=== PATIENT | female | born 1940 | race Two or more races ===

== ENCOUNTER 2024-12-22 03:38 | Inpatient (IN) | payer MEDICARE, OTHER ==
[~2024-12-22] VITALS: Ht 165.1 cm; Wt 69.9 kg
[2024-12-22] MEDS ORDERED: ALLO100T PO (04:05)
[2024-12-22] MEDS ORDERED: BUPR75TA21 PO (04:05)
[2024-12-22] MEDS ORDERED: ATOR80TA PO (04:05)
[2024-12-22] MEDS ORDERED: BUSP10TA3 PO (04:05)
[2024-12-22] MEDS ORDERED: AMIO100T4 PO (04:05)
[2024-12-22] MEDS ORDERED: HYDR-4076 PO (04:11)
[2024-12-22] MEDS ORDERED: SUCR1TAB31 PO (04:11)
[2024-12-22] MEDS ORDERED: METO25TA4 PO (04:11)
[2024-12-22] MEDS ORDERED: FURO20TA4 PO (04:11)
[2024-12-22] MEDS ORDERED: GABA-536 PO (04:11)
[2024-12-22] MEDS ORDERED: SACU1TAB PO (04:11)
[2024-12-22] MEDS ORDERED: APIX5TAB PO (04:11)
[2024-12-22] MEDS ORDERED: MELA1TAB47 PO (04:13)
[2024-12-22] MEDS ORDERED: SPIR25TA6 PO (04:13)
[2024-12-22] MEDS: IV NS 0.9% 1,000 ML BAG IV ONE (04:35)
[2024-12-22] MEDS ORDERED: METOPROLOL TARTRATE INJ 5 MG/5 ML AMPUL ONE (04:48)
[2024-12-22] MEDS: METOPROLOL TARTRATE INJ 5 MG/5 ML AMPUL IV ONE (04:54)
[2024-12-22 05:05] LABS: PLATELET COUNT (AUTO) 207 K/uL (150-450); RED BLOOD CELL COUNT(AUTO) 5.25 MIL/uL (4.0-5.2); RED CELL DISTRIBUTION WIDTH 17.4 % (11.5-15.0); WHITE BLOOD COUNT (AUTO) 5.8 K/uL (4.3-11.0)
[2024-12-22 05:13] LABS: CALCIUM, SERUM 9.8 mg/dL (8.5-10.1); CREATININE 0.7 mg/dL (0.6-1.3); SODIUM SERUM 138 mmol/L (136-145); UREA NITROGEN, BLOOD 19 mg/dL (7-18)
[2024-12-22 05:19] LABS: ASPARTATE AMINOTRANSFERASE 40 U/L (15-37); TOTAL PROTEIN, SERUM 6.7 g/dL (6.4-8.2)
[2024-12-22 05:21] LABS: APPEARANCE,URINE CLEAR (CLEAR); BLOOD, URINE NEGATIVE Ery/uL (NEGATIVE); LEUKOCYTE ESTERASE ,URINE NEGATIVE (NEGATIVE); NITRITE, URINE NEGATIVE (NEGATIVE); UGLUCOSE NEGATIVE (NEGATIVE)
[2024-12-22] MEDS ORDERED: AMIODARONE 150 MG/3 ML VIAL IV ONE (05:22)
[2024-12-22 05:23] LABS: LACTIC ACID 2.1 mmol/L (0.4-2.0)
[2024-12-22] MEDS: AMIODARONE 150 MG/3 ML VIAL IV ONE (05:30)
[2024-12-22] MEDS ORDERED: PIPERACI/TAZO 3.375GM/D5W 50ML PB IV ONE (05:45)
[2024-12-22 05:49] LABS: INR 1.15 (0.91-1.10)
[2024-12-22] MEDS: PIPERACILLIN /TAZOBACTAM 3.375 G in IV D5W 50 ML IV ONE (05:52)
[2024-12-22] MEDS ORDERED: MAGNESIUM HYDROXIDE 30 ML UDC PO PRN (06:30)
[2024-12-22] MEDS ORDERED: Z GUARD REMEDY 4 OZ OINT TP PRN (06:30)
[2024-12-22] MEDS ORDERED: ONDANSETRON HCL/PF 4 MG/2 ML VIAL IVP PRN (06:30)
[2024-12-22] MEDS ORDERED: ENOXAPARIN SODIUM 40 MG/0.4 ML DISP.SYRIN SQ SCH (06:30)
[2024-12-22] MEDS ORDERED: MAG HYDROX/AL HYDROX/SIMETH 30 ML UDC PO PRN (06:30)
[2024-12-22 07:35] LABS: PHOSPHORUS 3.4 mg/dL (2.5-4.9)
[2024-12-22] MEDS ORDERED: SENN-261 PO (07:37)
[2024-12-22] MEDS ORDERED: ZINC56.713 TP (07:37)
[2024-12-22] MEDS ORDERED: ACET325T53 PO (07:37)
[2024-12-22] MEDS ORDERED: BREO ELLIPTA IH (07:37)
[2024-12-22] MEDS ORDERED: MULT-213 PO (07:37)
[2024-12-22] MEDS ORDERED: POLY17PO4 PO (07:37)
[2024-12-22] MEDS ORDERED: AMIN30LI66 PO (07:37)
[2024-12-22] MEDS ORDERED: ASCO500T10 PO (07:37)
[2024-12-22] MEDS ORDERED: PANT40TA2 PO (07:37)
[2024-12-22 09:00] VITALS: BP 104/84; TEMP 97.9; O2SAT 98
[2024-12-22] MEDS ORDERED: AMIODARONE HCL 200 MG TABLET PO SCH ×2 (09:00→10:32)
[2024-12-22] MEDS: GABAPENTIN 400 MG CAPSULE PO SCH (10:44)
[2024-12-22] MEDS: PANTOPRAZOLE 40 MG TABLET.DR PO SCH (10:44)
[2024-12-22] MEDS: SUCRALFATE 1 G TABLET PO SCH (10:44)
[2024-12-22] MEDS: SPIRONOLACTONE 25 MG TABLET PO SCH (10:51)
[2024-12-22] MEDS: FUROSEMIDE 20 MG TABLET PO SCH (10:51)
[2024-12-22] MEDS: METOPROLOL SUCCINATE 25 MG TAB.SR.24H PO SCH (10:52)
[2024-12-22] MEDS: APIXABAN 5 MG TABLET PO SCH (10:59)
[2024-12-22 12:00] VITALS: BP 103/62; TEMP 97.9; O2SAT 99
[2024-12-22] MEDS ORDERED: AMIODARONE 450 MG in IV D5W 250 ML IV PRN (12:30)
[2024-12-22] MEDS ORDERED: PIPERACILLIN /TAZOBACTAM 3.375 G in IV D5W 50 ML IV SCH (13:00)
[2024-12-22] MEDS ORDERED: AMIODARONE 150 MG in IV D5W 100 ML IV ONE (13:00)
[2024-12-22] MEDS: PIPERACILLIN /TAZOBACTAM 3.375 G in IV D5W 100 ML IV SCH (14:13)
[2024-12-22] MEDS: AMIODARONE HCL 200 MG TABLET PO SCH (14:13)
[2024-12-22 16:00] VITALS: BP 97/61; TEMP 97.3; O2SAT 99
[2024-12-22 20:00] VITALS: BP 98/82; TEMP 97.2; O2SAT 96
[2024-12-22] MEDS: ACETAMINOPHEN 325 MG TABLET PO PRN (20:35)
[2024-12-22] MEDS: ATORVASTATIN 40 MG TABLET PO SCH (22:02)
[2024-12-23] VITALS (7 sets, daily range): BP systolic 93–169; BP diastolic 63–92; TEMP 97.2–98.1; O2SAT 95–98
[2024-12-23 06:42] LABS: CALCIUM, SERUM 9.6 mg/dL (8.5-10.1); CREATININE 0.9 mg/dL (0.6-1.3); SODIUM SERUM 137.0 mmol/L (136-145); UREA NITROGEN, BLOOD 20.0 mg/dL (7-18)
[2024-12-23 06:58] LABS: PLATELET COUNT (AUTO) 221 K/uL (150-450); RED BLOOD CELL COUNT(AUTO) 5.47 MIL/uL (4.0-5.2); RED CELL DISTRIBUTION WIDTH 18.2 % (11.5-15.0); WHITE BLOOD COUNT (AUTO) 6.8 K/uL (4.3-11.0)
[2024-12-23] MEDS: FLUTICASONE/VILANTEROL 1 EACH BLST.W.DEV IH SCH (09:00)
[2024-12-23] MEDS: ALLOPURINOL 100 MG TABLET PO SCH (10:34)
[2024-12-23] MEDS: ASCORBIC ACID 500 MG TABLET PO SCH (10:36)
[2024-12-23] MEDS: IV NS 0.9% 500 ML IV ONE (10:58)
[2024-12-24] VITALS: BP 118/96; TEMP 97.5; O2SAT 98
[2024-12-24 04:00] VITALS: BP 120/83; TEMP 97.5; O2SAT 96
[2024-12-24 08:00] VITALS: BP 118/83; TEMP 98.1; O2SAT 100
[2024-12-24] MEDS: PANTOPRAZOLE 40 MG TABLET.DR PO SCH (08:58)
[2024-12-24 12:00] VITALS: BP 91/76; TEMP 98; O2SAT 100
[2024-12-24 16:00] VITALS: BP 111/87; TEMP 97.7; O2SAT 97
[2024-12-24] MEDS: AMIODARONE HCL 200 MG TABLET PO ONE (19:14)
[2024-12-24 20:00] VITALS: BP 100/78; TEMP 97.7; O2SAT 95
[2024-12-25] VITALS: BP 102/76; TEMP 97; O2SAT 97
[2024-12-25 04:00] VITALS: BP 102/58; TEMP 97; O2SAT 98
[2024-12-25 07:43] LABS: PLATELET COUNT (AUTO) 213 K/uL (150-450); RED BLOOD CELL COUNT(AUTO) 5.25 MIL/uL (4.0-5.2); RED CELL DISTRIBUTION WIDTH 18.0 % (11.5-15.0); WHITE BLOOD COUNT (AUTO) 6.3 K/uL (4.3-11.0)
[2024-12-25 08:00] VITALS: BP 111/83; TEMP 97.7; O2SAT 97; O2SAT 98
[2024-12-25 08:05] LABS: CALCIUM, SERUM 9.0 mg/dL (8.5-10.1); CREATININE 0.9 mg/dL (0.6-1.3); PHOSPHORUS 2.8 mg/dL (2.5-4.9); SODIUM SERUM 142.0 mmol/L (136-145); UREA NITROGEN, BLOOD 17.0 mg/dL (7-18)
[2024-12-25] MEDS ORDERED: AMIO200T7 PO (08:27)
[2024-12-25 12:00] VITALS: BP_SYST 105; BP_DIAS 61; BP_DIAS 83; TEMP 97.7; TEMP 98.4; O2SAT 97; O2SAT 98
[2024-12-25] MEDS: SORBITOL SOLUTION 70% 30 ML SOLUTION PO ONE (13:07)
[2024-12-25] MEDS: BISACODYL SUPP (10 MG) 10 MG/SUPP.RECT SUPP.RECT RC ONE (13:07)
[2024-12-25] MEDS: LACTULOSE 10 G/15 ML UDC (PYXIS) PR ONE (13:24)
[2024-12-25 16:00] VITALS: BP 99/76; TEMP 98.8; O2SAT 100
[2024-12-25 20:00] VITALS: BP 111/73; TEMP 98.6; O2SAT 97
[2024-12-26] VITALS: BP 115/76; TEMP 98.1; O2SAT 98
[2024-12-26 04:00] VITALS: BP 107/78; TEMP 98.1; O2SAT 98
[2024-12-26 08:00] VITALS: BP 109/77; TEMP 98.4; O2SAT 97
[2024-12-26 12:00] VITALS: BP 112/81; TEMP 98.1; O2SAT 100
[2024-12-26] MEDS: METOPROLOL TARTRATE 50 MG TABLET PO SCH (12:45)
[2024-12-26 16:00] VITALS: BP 98/70; TEMP 97.9; O2SAT 95
[2024-12-26 20:00] VITALS: BP 114/68; TEMP 97.7; O2SAT 98
== END 2024-12-26 21:35 | DRG 280 ==
LOC: ER 03:39 → TELE-TD 07:44 → TELE1 07:58
PROVIDERS: ADMIT Nurse Practitioner Acute Care; ATTEND Nurse Practitioner Acute Care
DX: I48.20 Chronic atrial fibrillation, unspecified (principal); I50.23 Acute on chronic systolic (congestive) heart failure; I21.A1 Myocardial infarction type 2; L89.313 Pressure ulcer of right buttock, stage 3; E44.0 Moderate protein-calorie malnutrition; E87.20 Acidosis, unspecified; I25.10 Atherosclerotic heart disease of native coronary artery without angina pectoris; E78.5 Hyperlipidemia, unspecified; I11.0 Hypertensive heart disease with heart failure; Z86.73 Personal history of transient ischemic attack (TIA), and cerebral infarction without residual deficits; Z79.01 Long term (current) use of anticoagulants; Z66 Do not resuscitate; Z95.0 Presence of cardiac pacemaker; E88.09 Other disorders of plasma-protein metabolism, not elsewhere classified; Z68.25 Body mass index [BMI] 25.0-25.9, adult; I42.9 Cardiomyopathy, unspecified; L89.152 Pressure ulcer of sacral region, stage 2; L89.326 Pressure-induced deep tissue damage of left buttock; L98.8 Other specified disorders of the skin and subcutaneous tissue; I48.92 Unspecified atrial flutter
CPT/HCPCS: 36415; 71045-TC; 80048-TC; 80076-TC; 83605-TC; 83735-TC; 84100-TC; 84443-TC; 84484-TC; 85025-TC; 85730-TC; 87040-TC; 87081-TC; 87086-TC; 93307-TC; 97110-TC; 97112-TC; 97530-TC; A4223; G0378; J0282; J2543; J3490; J7030; J7040; J7050; J7060

== ENCOUNTER 2025-01-23 22:25 | Inpatient (IN) | payer MEDICARE, OTHER ==
[~2025-01-23] VITALS: Ht 162.6 cm; Wt 71.7 kg
[~2025-01-23 22:25] MED LIST: ACET325T53 PO; ALLO100T PO; AMIN30LI66 PO; AMIO100T4 PO; AMIO200T7 PO; APIX5TAB PO; ASCO500T10 PO; ATOR80TA PO; BREO ELLIPTA IH; BUPR75TA21 PO; BUSP10TA3 PO; FURO20TA4 PO; GABA-536 PO; HYDR-4076 PO; MELA1TAB47 PO; METO25TA4 PO; MULT-213 PO; PANT40TA2 PO; POLY17PO4 PO; SACU1TAB PO; SENN-261 PO; SPIR25TA6 PO; SUCR1TAB31 PO; ZINC56.713 TP
[2025-01-23 23:23] LABS: PLATELET COUNT (AUTO) 210 K/uL (150-450); RED BLOOD CELL COUNT(AUTO) 5.07 MIL/uL (4.0-5.2); RED CELL DISTRIBUTION WIDTH 16.2 % (11.5-15.0); WHITE BLOOD COUNT (AUTO) 7.7 K/uL (4.3-11.0)
[2025-01-23 23:36] LABS: CALCIUM, SERUM 9.1 mg/dL (8.5-10.1); CREATININE 0.6 mg/dL (0.6-1.3); SODIUM SERUM 140.0 mmol/L (136-145); UREA NITROGEN, BLOOD 8.0 mg/dL (7-18)
[2025-01-23 23:45] LABS: ASPARTATE AMINOTRANSFERASE 104.0 U/L (15-37); TOTAL PROTEIN, SERUM 6.1 g/dL (6.4-8.2)
[2025-01-23] MEDS ORDERED: POTASSIUM CL. PREMIX PERIPHER. 300 ML ONE (23:48)
[2025-01-23 23:50] VITALS: O2SAT 98
[2025-01-23] MEDS: ALBUTEROL FS 2.5 MG/3 ML VIAL.NEB NEB ONE (23:50)
[2025-01-23] MEDS: IPRATROPIUM NEB FS 0.5 MG/2.5 ML AMPUL.NEB NEB ONE (23:50)
[2025-01-23] MEDS: POTASSIUM CL. PREMIX PERIPHER. 50 ML IV SCH (23:59)
[2025-01-24] VITALS (11 sets, daily range): BP systolic 112–130; BP diastolic 70–96; TEMP 97.3–97.9; O2SAT 94–100
[2025-01-24 00:02] LABS: APPEARANCE,URINE SLIGHTLY CLOUDY (CLEAR); BLOOD, URINE 2+ Ery/uL (NEGATIVE); LEUKOCYTE ESTERASE ,URINE 3+ (NEGATIVE); NITRITE, URINE POSITIVE (NEGATIVE); UGLUCOSE NEGATIVE (NEGATIVE)
[2025-01-24 00:09] LABS: ADD URINE CULTURE YES; SQUAMOUS EPITHELIAL CELL,UR Rare /HPF (None Seen)
[2025-01-24] MEDS ORDERED: ONDANSETRON HCL/PF 4 MG/2 ML VIAL IVP PRN (01:30)
[2025-01-24] MEDS ORDERED: MAGNESIUM HYDROXIDE 30 ML UDC PO PRN (01:30)
[2025-01-24] MEDS ORDERED: MAG HYDROX/AL HYDROX/SIMETH 30 ML UDC PO PRN (01:30)
[2025-01-24] MEDS ORDERED: Z GUARD REMEDY 4 OZ OINT TP PRN (01:30)
[2025-01-24] MEDS: CEFTRIAXONE 1 G in IV D5W 50 ML IV ONE ×2 (02:30→05:04)
[2025-01-24] MEDS: CEFTRIAXONE 1GM BAG (ER ONLY) 50 ML IV ONE (04:35)
[2025-01-24] MEDS: LEVALBUTEROL HCL NEB 1.25 MG/0.5 ML VIAL.NEB NEB SCH (07:13)
[2025-01-24] MEDS: IPRATROPIUM NEB FS 0.5 MG/2.5 ML AMPUL.NEB NEB SCH (07:13)
[2025-01-24] MEDS ORDERED: BUSP5TAB3 PO ×2 (08:16)
[2025-01-24] MEDS ORDERED: CLOT15CR5 TP (08:16)
[2025-01-24] MEDS ORDERED: ONDA4TAB5 PO (08:16)
[2025-01-24] MEDS ORDERED: ZINC220C6 PO (08:16)
[2025-01-24] MEDS ORDERED: COLL30OI TP (08:16)
[2025-01-24] MEDS ORDERED: AMIO400T5 PO (08:16)
[2025-01-24] MEDS ORDERED: ALPR0.255 PO (08:16)
[2025-01-24] MEDS: PANTOPRAZOLE 40 MG VIAL IV SCH (09:02)
[2025-01-24] MEDS: SUCRALFATE 1 G TABLET PO SCH (12:31)
[2025-01-24] MEDS: ZINC SULFATE 220 MG CAPSULE PO SCH (12:31)
[2025-01-24] MEDS: MULTIVIT W/MINERALS 1 TAB TABLET PO SCH (12:32)
[2025-01-24] MEDS: AMIODARONE HCL 200 MG TABLET PO SCH (12:32)
[2025-01-24] MEDS: PANTOPRAZOLE 40 MG TABLET.DR PO SCH (12:32)
[2025-01-24] MEDS: GABAPENTIN 400 MG CAPSULE PO SCH (12:32)
[2025-01-24] MEDS: METOPROLOL SUCCINATE 25 MG TAB.SR.24H PO SCH (12:33)
[2025-01-24] MEDS: ASCORBIC ACID 500 MG TABLET PO SCH (12:33)
[2025-01-24] MEDS: SENNOSIDES 8.6 MG TABLET PO SCH (12:33)
[2025-01-24] MEDS: APIXABAN 5 MG TABLET PO SCH (12:34)
[2025-01-24 12:44] LABS: PLATELET COUNT (AUTO) 241 K/uL (150-450); RED BLOOD CELL COUNT(AUTO) 5.36 MIL/uL (4.0-5.2); RED CELL DISTRIBUTION WIDTH 16.8 % (11.5-15.0); WHITE BLOOD COUNT (AUTO) 6.8 K/uL (4.3-11.0)
[2025-01-24 13:03] LABS: ASPARTATE AMINOTRANSFERASE 105.0 U/L (15-37); CALCIUM, SERUM 9.1 mg/dL (8.5-10.1); CREATININE 0.5 mg/dL (0.6-1.3); PHOSPHORUS 2.5 mg/dL (2.5-4.9); TOTAL PROTEIN, SERUM 6.5 g/dL (6.4-8.2); UREA NITROGEN, BLOOD 11.0 mg/dL (7-18)
[2025-01-24 13:10] LABS: SODIUM SERUM 137.0 mmol/L (136-145)
[2025-01-24] MEDS: CLOTRIMAZOLE/BETAMETASONE DIPROPIONATE 15 GM TUBE TP SCH (13:11)
[2025-01-24] MEDS: FLUTICASONE/VILANTEROL 1 EACH BLST.W.DEV IH SCH (13:12)
[2025-01-24] MEDS: POTASSIUM CHLORIDE 20 MEQ TAB.PRT.SR PO SCH (13:44)
[2025-01-24] MEDS: ALLOPURINOL 100 MG TABLET PO SCH (16:56)
[2025-01-24] MEDS: IV NS 0.9% 1,000 ML IV ONE (16:57)
[2025-01-24] MEDS: CEFTRIAXONE 1 G in IV D5W 50 ML IV SCH (21:00)
[2025-01-24] MEDS: ATORVASTATIN 40 MG TABLET PO SCH (22:04)
[2025-01-25] VITALS (10 sets, daily range): BP systolic 90–151; BP diastolic 55–96; TEMP 97.3–98.8; O2SAT 98–100
[2025-01-25 08:08] LABS: CALCIUM, SERUM 9.4 mg/dL (8.5-10.1); CREATININE 0.7 mg/dL (0.6-1.3); PHOSPHORUS 2.0 mg/dL (2.5-4.9); SODIUM SERUM 137.0 mmol/L (136-145); UREA NITROGEN, BLOOD 14.0 mg/dL (7-18)
[2025-01-25 08:09] LABS: LDL 80 mg/dL (0-99)
[2025-01-25] MEDS: THERAHONEY GEL 1.5 OZ TUBE TP SCH (09:06)
[2025-01-25 09:19] LABS: PLATELET COUNT (AUTO) 237 K/uL (150-450); RED BLOOD CELL COUNT(AUTO) 5.20 MIL/uL (4.0-5.2); RED CELL DISTRIBUTION WIDTH 16.4 % (11.5-15.0); WHITE BLOOD COUNT (AUTO) 12.4 K/uL (4.3-11.0)
[2025-01-25] MEDS ORDERED: DOSING PER PHARMACY-VANCOMYCIN IV XX PRN (13:30)
[2025-01-25] MEDS: VANCOMYCIN 1 GM in IV D5W 250ml IV ONE (15:11)
[2025-01-25] MEDS: K PHOS NEUTRAL 250 MG TABLET PO ONE (16:06)
[2025-01-25] MEDS: VANCOMYCIN 500 MG in IV D5W 100ml IV ONE (16:29)
[2025-01-26] VITALS (14 sets, daily range): BP systolic 90–120; BP diastolic 69–99; TEMP 97.5–98; O2SAT 96–100
[2025-01-26 07:06] LABS: CALCIUM, SERUM 9.2 mg/dL (8.5-10.1); CREATININE 0.6 mg/dL (0.6-1.3); PHOSPHORUS 2.2 mg/dL (2.5-4.9); SODIUM SERUM 139.0 mmol/L (136-145); UREA NITROGEN, BLOOD 16.0 mg/dL (7-18)
[2025-01-26 07:51] LABS: PLATELET COUNT (AUTO) 248 K/uL (150-450); RED BLOOD CELL COUNT(AUTO) 5.39 MIL/uL (4.0-5.2); RED CELL DISTRIBUTION WIDTH 17.4 % (11.5-15.0); WHITE BLOOD COUNT (AUTO) 13.4 K/uL (4.3-11.0)
[2025-01-26] MEDS: ACETAMINOPHEN 325 MG TABLET PO PRN (12:46)
[2025-01-26] MEDS: IV NS 0.9% 500 ML IV ONE (12:47)
[2025-01-26] MEDS: VANCOMYCIN HCL 1.25 GM in IV D5W 250 ML IV SCH (16:15)
[2025-01-26] MEDS: K PHOS NEUTRAL 250 MG TABLET PO ONE (16:15)
[2025-01-27] VITALS (10 sets, daily range): BP systolic 103–113; BP diastolic 64–82; TEMP 97.5–98.6; O2SAT 94–100
[2025-01-27 03:07] LABS: HBSAG SCREEN Negative (Negative); HEPATITIS A AB, IgM Negative (Negative); HEPATITIS B CORE AB, IgM Negative (Negative)
[2025-01-27 03:07] LABS: HBSAG SCREEN Negative (Negative); HEPATITIS A AB, IgM Negative (Negative); HEPATITIS B CORE AB, IgM Negative (Negative)
[2025-01-27] MEDS: VITAMINS A AND D 56.7 GM TUBE TP SCH (09:02)
[2025-01-27 09:55] LABS: PLATELET COUNT (AUTO) 270 K/uL (150-450); RED BLOOD CELL COUNT(AUTO) 5.26 MIL/uL (4.0-5.2); RED CELL DISTRIBUTION WIDTH 16.4 % (11.5-15.0); WHITE BLOOD COUNT (AUTO) 9.8 K/uL (4.3-11.0)
[2025-01-27 10:07] LABS: FOLIC ACID 19.6 ng/mL (>3.0)
[2025-01-27 10:18] LABS: CALCIUM, SERUM 9.5 mg/dL (8.5-10.1); CREATININE 0.7 mg/dL (0.6-1.3); PHOSPHORUS 2.3 mg/dL (2.5-4.9); SODIUM SERUM 140.0 mmol/L (136-145); UREA NITROGEN, BLOOD 17.0 mg/dL (7-18)
[2025-01-27] MEDS ORDERED: VANC1.2526 IV (11:58)
[2025-01-27] MEDS: K PHOS NEUTRAL 250 MG TABLET PO ONE (19:18)
[2025-01-30 03:07] LABS: VITAMIN B1 THIAMINE,WB 124.4 nmol/L (66.5-200.0)
== END 2025-01-27 19:29 | DRG 689 ==
LOC: ER 22:31 → TELE 01-24 01:49
PROVIDERS: ADMIT Nurse Practitioner Acute Care; ATTEND Nurse Practitioner Acute Care
DX: N39.0 Urinary tract infection, site not specified (principal); G93.41 Metabolic encephalopathy; L89.153 Pressure ulcer of sacral region, stage 3; I50.22 Chronic systolic (congestive) heart failure; D68.69 Other thrombophilia; R17 Unspecified jaundice; I48.91 Unspecified atrial fibrillation; E66.9 Obesity, unspecified; E78.5 Hyperlipidemia, unspecified; E86.0 Dehydration; F03.90 Unspecified dementia, unspecified severity, without behavioral disturbance, psychotic disturbance, mood disturbance, and anxiety; E87.6 Hypokalemia; I11.0 Hypertensive heart disease with heart failure; J44.9 Chronic obstructive pulmonary disease, unspecified; Z79.01 Long term (current) use of anticoagulants; Z20.822 Contact with and (suspected) exposure to COVID-19; Z74.09 Other reduced mobility; L98.8 Other specified disorders of the skin and subcutaneous tissue; B95.62 Methicillin resistant Staphylococcus aureus infection as the cause of diseases classified elsewhere; Z66 Do not resuscitate; L85.3 Xerosis cutis; R74.8 Abnormal levels of other serum enzymes
CPT/HCPCS: 36415; 70450-TC; 71045-TC; 76705-TC; 80048-TC; 80053-TC; 80061-TC; 80202-TC; 81001; 82140-TC; 82607-TC; 83605-TC; 83690-TC; 83735-TC; 83921; 84100-TC; 84425; 84443-TC; 85025-TC; 86140-TC; 87040-TC; 87081-TC; 87086-TC; 92526; 92611; 94760-TC; 94761-TC; 94799-TC; A4223; A6223; A6403; G0378; J0696; J2470; J2919; J3373; J3480; J7030; J7040; J7050; J7060

== ENCOUNTER 2025-02-14 18:10 | Inpatient (IN) | payer MEDICARE, OTHER ==
[~2025-02-14] VITALS: Ht 317.5 cm; Wt 75.7 kg
[~2025-02-14 18:10] MED LIST changes: +ALPR0.255 PO; -AMIO100T4 PO; +AMIO400T5 PO; -BUSP10TA3 PO; +BUSP5TAB3 PO; +CLOT15CR5 TP; +COLL30OI TP; +ONDA4TAB5 PO; +VANC1.2526 IV; +ZINC220C6 PO; -ZINC56.713 TP
[2025-02-14] MEDS ORDERED: AMIODARONE 150 MG/3 ML VIAL IV ONE (18:30)
[2025-02-14 18:37] LABS: PLATELET COUNT (AUTO) 199 K/uL (150-450); RED BLOOD CELL COUNT(AUTO) 4.80 MIL/uL (4.0-5.2); RED CELL DISTRIBUTION WIDTH 16.2 % (11.5-15.0); WHITE BLOOD COUNT (AUTO) 5.1 K/uL (4.3-11.0)
[2025-02-14] MEDS: AMIODARONE 150 MG in IV D5W 100 ML IV ONE (18:45)
[2025-02-14 18:57] LABS: CALCIUM, SERUM 8.7 mg/dL (8.5-10.1); CREATININE 0.7 mg/dL (0.6-1.3); SODIUM SERUM 146 mmol/L (136-145); UREA NITROGEN, BLOOD 9 mg/dL (7-18)
[2025-02-14] MEDS ORDERED: OMEP20CA15 PO (18:58)
[2025-02-14] MEDS ORDERED: ACET325T53 PO (18:58)
[2025-02-14] MEDS ORDERED: POTA-10 PO (18:58)
[2025-02-14] MEDS ORDERED: FLUT1DIS IH (18:58)
[2025-02-14] MEDS ORDERED: CRAN425C6 PO (18:58)
[2025-02-14] MEDS ORDERED: POVI1MED TP (18:58)
[2025-02-14 19:03] LABS: INR 1.15 (0.91-1.10)
[2025-02-14] MEDS ORDERED: LABETALOL 20 MG/4 ML VIAL ONE (20:21)
[2025-02-14] MEDS: LABETALOL HCL IV 100MG VIAL IV ONE (20:27)
[2025-02-14] MEDS ORDERED: ONDANSETRON HCL/PF 4 MG/2 ML VIAL IVP PRN (20:30)
[2025-02-14] MEDS ORDERED: Z GUARD REMEDY 4 OZ OINT TP PRN (20:30)
[2025-02-14] MEDS ORDERED: ACETAMINOPHEN 325 MG TABLET PO PRN (20:30)
[2025-02-14] MEDS ORDERED: MAG HYDROX/AL HYDROX/SIMETH 30 ML UDC PO PRN (20:30)
[2025-02-14] MEDS ORDERED: MAGNESIUM HYDROXIDE 30 ML UDC PO PRN (20:30)
[2025-02-14] MEDS: ATORVASTATIN 40 MG TABLET PO SCH (22:45)
[2025-02-14] MEDS: APIXABAN 5 MG TABLET PO SCH (22:45)
[2025-02-14] MEDS: METOPROLOL SUCCINATE 25 MG TAB.SR.24H PO SCH (22:46)
[2025-02-14] MEDS: AMIODARONE HCL 200 MG TABLET PO SCH (22:46)
[2025-02-14 22:50] VITALS: BP 128/96; TEMP 99; O2SAT 99
[2025-02-15] VITALS: BP 111/74; TEMP 99; O2SAT 99
[2025-02-15] MEDS ORDERED: AMIODARONE 150 MG/3 ML VIAL IV ONE (00:47)
[2025-02-15] MEDS: FUROSEMIDE 40 MG/4 ML VIAL IV ONE (01:15)
[2025-02-15] MEDS: POTASSIUM CL. PREMIX PERIPHER. 50 ML IV SCH (01:16)
[2025-02-15 04:00] VITALS: BP 114/64; TEMP 97.5; O2SAT 100
[2025-02-15] MEDS: AMIODARONE 150 MG/3 ML VIAL IV ONE (04:57)
[2025-02-15] MEDS: AMIODARONE 450 MG in IV D5W 241 ML IV PRN (05:58)
[2025-02-15 06:52] LABS: PLATELET COUNT (AUTO) 197 K/uL (150-450); RED BLOOD CELL COUNT(AUTO) 5.09 MIL/uL (4.0-5.2); RED CELL DISTRIBUTION WIDTH 16.5 % (11.5-15.0); WHITE BLOOD COUNT (AUTO) 4.9 K/uL (4.3-11.0)
[2025-02-15 07:10] LABS: CALCIUM, SERUM 9.1 mg/dL (8.5-10.1); CREATININE 0.6 mg/dL (0.6-1.3); PHOSPHORUS 2.8 mg/dL (2.5-4.9); SODIUM SERUM 146.0 mmol/L (136-145); UREA NITROGEN, BLOOD 7.0 mg/dL (7-18)
[2025-02-15 08:00] VITALS: BP 122/82; TEMP 98.2; O2SAT 100
[2025-02-15] MEDS: ZINC SULFATE 220 MG CAPSULE PO SCH (08:24)
[2025-02-15] MEDS: SENNOSIDES 8.6 MG TABLET PO SCH (08:24)
[2025-02-15] MEDS: MULTIVITAMINS,THERAGRAN 1 UDTAB TABLET PO SCH (08:24)
[2025-02-15] MEDS: PANTOPRAZOLE 40 MG TABLET.DR PO SCH (08:24)
[2025-02-15] MEDS: ASCORBIC ACID 500 MG TABLET PO SCH (08:24)
[2025-02-15] MEDS: ALLOPURINOL 100 MG TABLET PO SCH (08:24)
[2025-02-15] MEDS: SPIRONOLACTONE 25 MG TABLET PO SCH (08:24)
[2025-02-15] MEDS: FUROSEMIDE 20 MG TABLET PO SCH (08:24)
[2025-02-15] MEDS: SUCRALFATE 1 G TABLET PO SCH (08:24)
[2025-02-15] MEDS: GABAPENTIN 400 MG CAPSULE PO SCH (08:25)
[2025-02-15] MEDS: POTASSIUM CHLORIDE 10 MEQ TABLET.SA PO SCH (08:28)
[2025-02-15] MEDS: PROSOURCE / PROSTAT (PYXIS) 30 ML UDC PO SCH (08:29)
[2025-02-15] MEDS: FLUTICASONE/SALMETEROL 1 DISK IH SCH (08:29)
[2025-02-15 10:59] LABS: ASPARTATE AMINOTRANSFERASE 42.0 U/L (15-37); TOTAL PROTEIN, SERUM 5.8 g/dL (6.4-8.2)
[2025-02-15 12:00] VITALS: BP 122/82; TEMP 98.2; O2SAT 100
[2025-02-15] MEDS: METOPROLOL TARTRATE 50 MG TABLET PO SCH (12:05)
[2025-02-15 16:00] VITALS: BP 122/86; TEMP 98.4; O2SAT 100
[2025-02-15 20:00] VITALS: BP 121/88; TEMP 98.3; O2SAT 98
[2025-02-16] VITALS: BP 101/75; TEMP 97.5; O2SAT 99
[2025-02-16 04:00] VITALS: BP 124/95; TEMP 97; O2SAT 100
[2025-02-16 07:06] LABS: PLATELET COUNT (AUTO) 204 K/uL (150-450); RED BLOOD CELL COUNT(AUTO) 4.74 MIL/uL (4.0-5.2); RED CELL DISTRIBUTION WIDTH 16.6 % (11.5-15.0); WHITE BLOOD COUNT (AUTO) 5.1 K/uL (4.3-11.0)
[2025-02-16 07:14] LABS: CALCIUM, SERUM 9.3 mg/dL (8.5-10.1); CREATININE 0.7 mg/dL (0.6-1.3); PHOSPHORUS 2.7 mg/dL (2.5-4.9); SODIUM SERUM 147.0 mmol/L (136-145); UREA NITROGEN, BLOOD 11.0 mg/dL (7-18)
[2025-02-16 08:00] VITALS: BP 113/90; TEMP 97.3; O2SAT 100
[2025-02-16] MEDS ORDERED: METO50TA16 PO (09:52)
[2025-02-16] MEDS ORDERED: HYDROCODONE/APAP 5/325MG TABLET PO PRN (10:30)
[2025-02-16] MEDS ORDERED: POTASSIUM CHLORIDE 20 MEQ TAB.PRT.SR PO SCH (10:30)
[2025-02-16] MEDS: MORPHINE SULFATE INJ 2 MG/ML DISP.SYRIN IM ONE (10:35)
[2025-02-16] MEDS: POTASSIUM CHLORIDE 20 MEQ POWDER PACKET PO SCH (10:37)
[2025-02-16 12:00] VITALS: BP 114/78; TEMP 97.3; O2SAT 100
[2025-02-16 12:06] VITALS: BP 114/78
[2025-02-16] MEDS ORDERED: ALBUTEROL FS 2.5 MG/3 ML VIAL.NEB NEB SCH (13:30)
[2025-02-16] MEDS ORDERED: BUDESONIDE RESPULE INH 0.5 MG/2 ML AMPUL.NEB HHN SCH (17:00)
== END 2025-02-16 15:50 | DRG 281 ==
LOC: ER 18:16 → TELE-TD 22:01 → TELE1 02-16 08:29
PROVIDERS: ADMIT Registered Nurse Psychiatric/Mental Health; ATTEND Nurse Practitioner Acute Care
DX: I48.91 Unspecified atrial fibrillation (principal); I50.22 Chronic systolic (congestive) heart failure; I21.A1 Myocardial infarction type 2; J90 Pleural effusion, not elsewhere classified; E87.6 Hypokalemia; I11.0 Hypertensive heart disease with heart failure; E66.9 Obesity, unspecified; E78.5 Hyperlipidemia, unspecified; F32.A Depression, unspecified; I42.9 Cardiomyopathy, unspecified; K21.9 Gastro-esophageal reflux disease without esophagitis; Z79.01 Long term (current) use of anticoagulants; Z95.0 Presence of cardiac pacemaker; R94.5 Abnormal results of liver function studies; I25.10 Atherosclerotic heart disease of native coronary artery without angina pectoris; I73.9 Peripheral vascular disease, unspecified
CPT/HCPCS: 36415; 71045-TC; 80048-TC; 80076-TC; 83735-TC; 84100-TC; 84484-TC; 85025-TC; 85730-TC; 87081-TC; A4223; G0378; J0282; J1938; J3480; J3490; J7040; J7050; J7060; J7120

== ENCOUNTER 2025-03-03 13:04 | Inpatient (IN) | payer MEDICARE, OTHER ==
[~2025-03-03] VITALS: Ht 160 cm; Wt 74.8 kg
[~2025-03-03 13:04] MED LIST changes: -ALPR0.255 PO; -AMIO200T7 PO; -AMIO400T5 PO; -BREO ELLIPTA IH; -BUSP5TAB3 PO; -CLOT15CR5 TP; +CRAN425C6 PO; +FLUT1DIS IH; -HYDR-4076 PO; -METO25TA4 PO; +METO50TA16 PO; +OMEP20CA15 PO; -PANT40TA2 PO; +POTA-10 PO; +POVI1MED TP; -VANC1.2526 IV
[2025-03-03] MEDS ORDERED: MORPHINE SULFATE INJ 4 MG/ML DISP.SYRIN ONE (13:30)
[2025-03-03] MEDS ORDERED: ONDANSETRON HCL/PF 4 MG/2 ML VIAL ONE (13:30)
[2025-03-03 13:43] LABS: PLATELET COUNT (AUTO) 198 K/uL (150-450); RED BLOOD CELL COUNT(AUTO) 5.07 MIL/uL (4.0-5.2); RED CELL DISTRIBUTION WIDTH 16.6 % (11.5-15.0); WHITE BLOOD COUNT (AUTO) 8.4 K/uL (4.3-11.0)
[2025-03-03 13:55] LABS: CALCIUM, SERUM 8.8 mg/dL (8.5-10.1); CREATININE 0.7 mg/dL (0.6-1.3); SODIUM SERUM 135 mmol/L (136-145); UREA NITROGEN, BLOOD 14 mg/dL (7-18)
[2025-03-03 14:01] LABS: ASPARTATE AMINOTRANSFERASE 63 U/L (15-37); TOTAL PROTEIN, SERUM 5.3 g/dL (6.4-8.2)
[2025-03-03 14:09] LABS: LACTIC ACID 2.2 mmol/L (0.4-2.0)
[2025-03-03] MEDS: IV NS 0.9% 500 ML BAG IV ONE (14:10)
[2025-03-03] MEDS: MORPHINE SULFATE INJ 2 MG/ML DISP.SYRIN IV ONE (14:13)
[2025-03-03] MEDS: ONDANSETRON HCL/PF 4 MG/2 ML VIAL IVP ONE (14:13)
[2025-03-03 14:45] LABS: APPEARANCE,URINE CLOUDY (CLEAR); BLOOD, URINE 3+ Ery/uL (NEGATIVE); LEUKOCYTE ESTERASE ,URINE 3+ (NEGATIVE); NITRITE, URINE NEGATIVE (NEGATIVE); UGLUCOSE NEGATIVE (NEGATIVE)
[2025-03-03] MEDS: CEFEPIME 1 GM in IV D5W 50 ML IV ONE (14:50)
[2025-03-03 14:56] LABS: ADD URINE CULTURE YES; SQUAMOUS EPITHELIAL CELL,UR 0-2 /HPF (None Seen)
[2025-03-03] MEDS ORDERED: METOPROLOL SUCCINATE 25 MG TAB.SR.24H ONE (15:22)
[2025-03-03] MEDS ORDERED: METOPROLOL TARTRATE INJ 5 MG/5 ML AMPUL ONE ×2 (15:22→16:16)
[2025-03-03] MEDS: VANCOMYCIN 1 GM in IV D5W 250 ML IV ONE (15:30)
[2025-03-03] MEDS: METOPROLOL TARTRATE INJ 5 MG/5 ML AMPUL IV ONE (15:35)
[2025-03-03] MEDS: METOPROLOL SUCCINATE 50 MG TAB.SR.24H PO STA (15:35)
[2025-03-03] MEDS: METOPROLOL TARTRATE INJ 5 MG/5 ML AMPUL INJ STA (16:20)
[2025-03-03] MEDS: APIXABAN 5 MG TABLET PO SCH (17:00)
[2025-03-03] MEDS: GABAPENTIN 400 MG CAPSULE PO SCH (17:00)
[2025-03-03] MEDS: ALLOPURINOL 100 MG TABLET PO SCH (17:00)
[2025-03-03] MEDS ORDERED: ACETAMINOPHEN 325 MG TABLET PO PRN (17:00)
[2025-03-03] MEDS ORDERED: ONDANSETRON HCL/PF 4 MG/2 ML VIAL IVP PRN (17:00)
[2025-03-03] MEDS ORDERED: MAG HYDROX/AL HYDROX/SIMETH 30 ML UDC PO PRN (17:00)
[2025-03-03] MEDS ORDERED: MAGNESIUM HYDROXIDE 30 ML UDC PO PRN (17:00)
[2025-03-03] MEDS ORDERED: POLYETHYLENE GLYCOL 3350 17 GM POWD.PACK PO PRN (17:30)
[2025-03-03 19:06] VITALS: BP 105/87; TEMP 97.5; O2SAT 98
[2025-03-03 20:00] VITALS: BP 116/79; TEMP 97.7; O2SAT 97
[2025-03-03] MEDS: IV D5 LR 1,000 ML IV PRN (20:02)
[2025-03-03] MEDS: ALBUTEROL FS 2.5 MG/3 ML VIAL.NEB NEB SCH (20:27)
[2025-03-03] MEDS: ZOSYN IVPB 3.375 G in IV D5W 50ml IV SCH (20:28)
[2025-03-03] MEDS: POTASSIUM CL. PREMIX PERIPHER. 50 ML IV SCH (20:31)
[2025-03-03 20:58] VITALS: O2SAT 96
[2025-03-03] MEDS ORDERED: PIPERACILLIN /TAZOBACTAM 3.375 G in IV D5W 50 ML IV SCH (21:00)
[2025-03-03 21:08] VITALS: O2SAT 99
[2025-03-03] MEDS: ATORVASTATIN 40 MG TABLET PO SCH (21:21)
[2025-03-04] VITALS (9 sets, daily range): BP systolic 78–108; BP diastolic 60–90; TEMP 97.3–99; O2SAT 95–99
[2025-03-04] MEDS: IV NS 0.9% 500 ML IV ONE ×2 (02:22)
[2025-03-04] MEDS: BUDESONIDE RESPULE INH 0.5 MG/2 ML AMPUL.NEB NEB SCH (07:05)
[2025-03-04 07:12] LABS: PLATELET COUNT (AUTO) 179 K/uL (150-450); RED BLOOD CELL COUNT(AUTO) 4.86 MIL/uL (4.0-5.2); RED CELL DISTRIBUTION WIDTH 16.1 % (11.5-15.0); WHITE BLOOD COUNT (AUTO) 6.3 K/uL (4.3-11.0)
[2025-03-04] MEDS: SUCRALFATE 1 G TABLET PO SCH (07:30)
[2025-03-04 07:31] LABS: LDL 59.0 mg/dL (0-99)
[2025-03-04 07:33] LABS: CALCIUM, SERUM 8.0 mg/dL (8.5-10.1); CREATININE 0.6 mg/dL (0.6-1.3); PHOSPHORUS 2.9 mg/dL (2.5-4.9); SODIUM SERUM 144.0 mmol/L (136-145); UREA NITROGEN, BLOOD 12.0 mg/dL (7-18)
[2025-03-04 08:49] LABS: ASPARTATE AMINOTRANSFERASE 56.0 U/L (15-37); TOTAL PROTEIN, SERUM 5.1 g/dL (6.4-8.2)
[2025-03-04] MEDS: SENNOSIDES 8.6 MG TABLET PO SCH (09:00)
[2025-03-04] MEDS: SPIRONOLACTONE 25 MG TABLET PO SCH (09:00)
[2025-03-04] MEDS: ZINC SULFATE 220 MG CAPSULE PO SCH (09:00)
[2025-03-04] MEDS: ACETAMINOPHEN 325 MG TABLET PO SCH (09:00)
[2025-03-04] MEDS: MULTIVITAMINS,THERAGRAN 1 UDTAB TABLET PO SCH (09:00)
[2025-03-04] MEDS: ASCORBIC ACID 500 MG TABLET PO SCH (09:00)
[2025-03-04] MEDS: PROSOURCE / PROSTAT (PYXIS) 30 ML UDC PO SCH (09:00)
[2025-03-04] MEDS: SENNOSIDES/DOCUSATE SODIUM 1 TAB TABLET PO SCH (09:00)
[2025-03-04] MEDS: POLYETHYLENE GLYCOL 3350 17 GM POWD.PACK PO SCH (09:00)
[2025-03-04] MEDS: PANTOPRAZOLE 40 MG VIAL IV SCH (09:00)
[2025-03-04] MEDS: POTASSIUM CL. PREMIX PERIPHER. 50 ML IV ONE (09:23)
[2025-03-04] MEDS: THERAHONEY GEL 1.5 OZ TUBE TP SCH ×2 (11:07→11:08)
[2025-03-04] MEDS: ENOXAPARIN SODIUM 40 MG/0.4 ML DISP.SYRIN SQ SCH (11:26)
[2025-03-04] MEDS ORDERED: DIATR MEGLU/DIATRIZOATE SODIUM 120 ML BOTTLE (GASTROGRAPHIN) ONE (14:03)
[2025-03-04] MEDS: NA PHOS,M-B/NA PHOS,DI-BA 1 EA ENEMA RC ONE (16:00)
[2025-03-04] MEDS ORDERED: IOHEXOL-300 100 ML VIAL IV ONE (16:22)
[2025-03-04] MEDS ORDERED: IV NS 0.9% 250 ML IV ONE (16:23)
[2025-03-04] MEDS: MORPHINE SULFATE INJ 2 MG/ML DISP.SYRIN IVP PRN (17:09)
[2025-03-05] VITALS (11 sets, daily range): BP systolic 121–131; BP diastolic 75–97; TEMP 97.3–97.5; O2SAT 92–100
[2025-03-06] VITALS (12 sets, daily range): BP systolic 111–134; BP diastolic 83–105; TEMP 97.3–97.5; O2SAT 94–100
[2025-03-06] MEDS: Z GUARD REMEDY 4 OZ OINT TP PRN (09:32)
[2025-03-06] MEDS: APIXABAN 5 MG TABLET PO SCH (09:54)
[2025-03-06] MEDS: MUPIROCIN OINT 2% 22 GM TUBE NS SCH (09:57)
[2025-03-06 10:04] LABS: PLATELET COUNT (AUTO) 181 K/uL (150-450); RED BLOOD CELL COUNT(AUTO) 5.03 MIL/uL (4.0-5.2); RED CELL DISTRIBUTION WIDTH 16.8 % (11.5-15.0); WHITE BLOOD COUNT (AUTO) 7.5 K/uL (4.3-11.0)
[2025-03-06 10:13] LABS: CALCIUM, SERUM 9.2 mg/dL (8.5-10.1); CREATININE 0.7 mg/dL (0.6-1.3); UREA NITROGEN, BLOOD 9.0 mg/dL (7-18)
[2025-03-06 10:17] LABS: SODIUM SERUM 145.0 mmol/L (136-145)
[2025-03-06] MEDS ORDERED: HYDROCODONE/APAP 5/325MG TABLET PO PRN (12:30)
[2025-03-06] MEDS: POTASSIUM CHLORIDE 20 MEQ POWDER PACKET PO SCH (16:57)
[2025-03-06] MEDS ORDERED: POTASSIUM CHLORIDE 20 MEQ POWDER PACKET GT SCH (17:00)
[2025-03-07] VITALS (15 sets, daily range): BP systolic 106–146; BP diastolic 67–104; TEMP 97.5–98.2; O2SAT 91–100
[2025-03-07 08:32] LABS: ASPARTATE AMINOTRANSFERASE 47.0 U/L (15-37); TOTAL PROTEIN, SERUM 5.5 g/dL (6.4-8.2)
[2025-03-07 08:59] LABS: CALCIUM, SERUM 9.2 mg/dL (8.5-10.1); CREATININE 0.6 mg/dL (0.6-1.3); PHOSPHORUS 1.9 mg/dL (2.5-4.9); SODIUM SERUM 145 mmol/L (136-145); UREA NITROGEN, BLOOD 6 mg/dL (7-18)
[2025-03-07] MEDS: CEFTRIAXONE 1 G in IV D5W 50 ML IV SCH (12:39)
[2025-03-07] MEDS: NEUTRA PHOS 1 POWD.PACKET PO ONE (15:28)
[2025-03-08] VITALS (13 sets, daily range): BP systolic 106–123; BP diastolic 78–86; TEMP 97.5–97.7; O2SAT 96–100
[2025-03-08] MEDS: ACETAMINOPHEN 325 MG TABLET PO PRN ×2 (01:37→22:09)
[2025-03-08] MEDS: AMIODARONE 150 MG/3 ML VIAL IV ONE ×2 (04:55)
[2025-03-08] MEDS: AMIODARONE 150 MG in IV D5W 100 ML IV ONE (05:05)
[2025-03-08] MEDS: AMIODARONE 450 MG in IV D5W 241 ML IV PRN (05:18)
[2025-03-08] MEDS: PANTOPRAZOLE 40 MG TABLET.DR PO SCH (08:36)
[2025-03-08] MEDS: DIGOXIN INJ 0.5 MG/2 ML AMPUL IV SCH (11:49)
[2025-03-08] MEDS: NEUTRA PHOS 1 POWD.PACKET PO ONE (11:50)
[2025-03-08 13:10] LABS: CALCIUM, SERUM 8.7 mg/dL (8.5-10.1); CREATININE 0.7 mg/dL (0.6-1.3); PHOSPHORUS 2.1 mg/dL (2.5-4.9); SODIUM SERUM 139.0 mmol/L (136-145); UREA NITROGEN, BLOOD 5.0 mg/dL (7-18)
[2025-03-09] VITALS (12 sets, daily range): BP systolic 129–143; BP diastolic 69–110; TEMP 97.4–98.2; O2SAT 97–100
[2025-03-09 06:59] LABS: CALCIUM, SERUM 9.2 mg/dL (8.5-10.1); CREATININE 0.5 mg/dL (0.6-1.3); SODIUM SERUM 147.0 mmol/L (136-145); UREA NITROGEN, BLOOD 5.0 mg/dL (7-18)
[2025-03-09] MEDS: FUROSEMIDE 40 MG/4 ML VIAL IV SCH (09:49)
[2025-03-09] MEDS: POTASSIUM CHLORIDE 20 MEQ TAB.PRT.SR PO SCH (09:49)
[2025-03-09] MEDS: METOPROLOL TARTRATE 50 MG TABLET PO SCH (12:17)
[2025-03-10] VITALS (9 sets, daily range): BP systolic 123–133; BP diastolic 77–85; TEMP 98.2–99; O2SAT 96–100
[2025-03-10 07:31] LABS: PLATELET COUNT (AUTO) 197 K/uL (150-450); RED BLOOD CELL COUNT(AUTO) 4.79 MIL/uL (4.0-5.2); RED CELL DISTRIBUTION WIDTH 16.1 % (11.5-15.0); WHITE BLOOD COUNT (AUTO) 7.6 K/uL (4.3-11.0)
[2025-03-10 08:14] LABS: ASPARTATE AMINOTRANSFERASE 39.0 U/L (15-37); CALCIUM, SERUM 9.1 mg/dL (8.5-10.1); CREATININE 0.7 mg/dL (0.6-1.3); PHOSPHORUS 2.5 mg/dL (2.5-4.9); SODIUM SERUM 145.0 mmol/L (136-145); TOTAL PROTEIN, SERUM 5.2 g/dL (6.4-8.2); UREA NITROGEN, BLOOD 5.0 mg/dL (7-18)
[2025-03-10] MEDS: METOPROLOL TARTRATE 50 MG TABLET PO SCH (12:48)
[2025-03-10] MEDS: GABAPENTIN 400 MG CAPSULE PO SCH (21:18)
[2025-03-10] MEDS: ALLOPURINOL 100 MG TABLET PO SCH (21:21)
[2025-03-10] MEDS: APIXABAN 5 MG TABLET PO SCH (21:23)
[2025-03-11] VITALS (10 sets, daily range): BP systolic 115–120; BP diastolic 40–70; TEMP 97.8–99; O2SAT 95–99
[2025-03-11 07:31] LABS: CALCIUM, SERUM 9.8 mg/dL (8.5-10.1); CREATININE 0.7 mg/dL (0.6-1.3); SODIUM SERUM 145.0 mmol/L (136-145); UREA NITROGEN, BLOOD 7.0 mg/dL (7-18)
[2025-03-11] MEDS: POTASSIUM CHLORIDE 20 MEQ TAB.PRT.SR PO SCH (09:33)
[2025-03-11] MEDS: FUROSEMIDE 40 MG/4 ML VIAL IV SCH (09:40)
[2025-03-12] VITALS (12 sets, daily range): BP systolic 107–127; BP diastolic 42–78; TEMP 97.3–99; O2SAT 93–100
[2025-03-12 08:07] LABS: PLATELET COUNT (AUTO) 198 K/uL (150-450); RED BLOOD CELL COUNT(AUTO) 4.88 MIL/uL (4.0-5.2); RED CELL DISTRIBUTION WIDTH 17.3 % (11.5-15.0); WHITE BLOOD COUNT (AUTO) 5.5 K/uL (4.3-11.0)
[2025-03-12 08:12] LABS: ASPARTATE AMINOTRANSFERASE 44.0 U/L (15-37); CALCIUM, SERUM 9.4 mg/dL (8.5-10.1); CREATININE 0.5 mg/dL (0.6-1.3); PHOSPHORUS 2.8 mg/dL (2.5-4.9); SODIUM SERUM 138.0 mmol/L (136-145); TOTAL PROTEIN, SERUM 5.2 g/dL (6.4-8.2); UREA NITROGEN, BLOOD 7.0 mg/dL (7-18)
[2025-03-12] MEDS: FUROSEMIDE 40 MG/4 ML VIAL IV SCH (10:28)
[2025-03-12] MEDS: POTASSIUM CHLORIDE 20 MEQ TAB.PRT.SR PO SCH (10:28)
[2025-03-13] VITALS (10 sets, daily range): BP systolic 79–105; BP diastolic 33–69; TEMP 97.9–98.7; O2SAT 92–100
[2025-03-14 01:35] VITALS: O2SAT 96
[2025-03-14 01:44] VITALS: O2SAT 99
[2025-03-14 04:00] VITALS: BP 100/62; TEMP 98.1; O2SAT 99
[2025-03-14 08:00] VITALS: BP 117/71; TEMP 98.4; O2SAT 98
== END 2025-03-14 13:30 | DRG 871 ==
LOC: ER 13:11 → TELE 15:33 → TELE1 03-08 04:15 → TELE-TD 03-08 04:26 → MEDSG1 03-09 09:59
PROVIDERS: ADMIT Nurse Practitioner Acute Care; ATTEND Nurse Practitioner Acute Care
PROC: 05HB33Z Insertion of Infusion Device into Right Basilic Vein, Percutaneous Approach (ICD-10-PCS; principal; 2025-03-07)
DX: A41.9 Sepsis, unspecified organism (principal); I21.A1 Myocardial infarction type 2; L89.153 Pressure ulcer of sacral region, stage 3; D68.59 Other primary thrombophilia; E44.0 Moderate protein-calorie malnutrition; E87.20 Acidosis, unspecified; I48.20 Chronic atrial fibrillation, unspecified; J90 Pleural effusion, not elsewhere classified; N39.0 Urinary tract infection, site not specified; I50.20 Unspecified systolic (congestive) heart failure; F03.92 Unspecified dementia, unspecified severity, with psychotic disturbance; E78.5 Hyperlipidemia, unspecified; E88.09 Other disorders of plasma-protein metabolism, not elsewhere classified; F32.A Depression, unspecified; G62.9 Polyneuropathy, unspecified; I11.0 Hypertensive heart disease with heart failure; I25.2 Old myocardial infarction; E87.6 Hypokalemia; I25.10 Atherosclerotic heart disease of native coronary artery without angina pectoris; E83.39 Other disorders of phosphorus metabolism; Z86.73 Personal history of transient ischemic attack (TIA), and cerebral infarction without residual deficits; Z95.0 Presence of cardiac pacemaker; Z20.822 Contact with and (suspected) exposure to COVID-19; Z79.01 Long term (current) use of anticoagulants; J44.9 Chronic obstructive pulmonary disease, unspecified; K80.20 Calculus of gallbladder without cholecystitis without obstruction; Z90.710 Acquired absence of both cervix and uterus; K59.00 Constipation, unspecified; Z68.29 Body mass index [BMI] 29.0-29.9, adult; F09 Unspecified mental disorder due to known physiological condition; L98.8 Other specified disorders of the skin and subcutaneous tissue; Z74.09 Other reduced mobility; Z22.322 Carrier or suspected carrier of Methicillin resistant Staphylococcus aureus; R74.01 Elevation of levels of liver transaminase levels; B96.20 Unspecified Escherichia coli [E. coli] as the cause of diseases classified elsewhere
CPT/HCPCS: 36410; 36415; 71045-TC; 76705-TC; 78226; 80048-TC; 80053-TC; 80061-TC; 80076-TC; 81001; 83605-TC; 83690-TC; 83735-TC; 84100-TC; 84443-TC; 84484-TC; 85025-TC; 87040-TC; 87081-TC; 87086-TC; 87186-TC; 92526; 92611; 93307-TC; 94760-TC; 94799-TC; 97110-TC; 97112-TC; 97530-TC; A4223; A9537; G0378; J0282; J0692; J0696; J1160; J1650; J1938; J2270; J2405; J2470; J2543; J3373; J3480; J3490; J7040; J7050; J7060; Q9963; Q9967

== ENCOUNTER 2025-03-31 04:12 | Inpatient (IN) | payer MEDICARE, OTHER ==
[~2025-03-31] VITALS: Ht 162.6 cm; Wt 65.3 kg
[~2025-03-31 04:12] MED LIST changes: -METO50TA16 PO; -ONDA4TAB5 PO; -POVI1MED TP
[2025-03-31] MEDS ORDERED: PANTOPRAZOLE 40 MG VIAL ONE (05:03)
[2025-03-31] MEDS ORDERED: MAG HYDROX/AL HYDROX/SIMETH 30 ML UDC ONE (05:03)
[2025-03-31] MEDS ORDERED: KETOROLAC TROMETHAMINE 15 MG/ML VIAL ONE (05:03)
[2025-03-31] MEDS: KETOROLAC TROMETHAMINE 15 MG/ML VIAL IV ONE (05:26)
[2025-03-31] MEDS: MAG HYDROX/AL HYDROX/SIMETH 30 ML UDC PO ONE (05:26)
[2025-03-31] MEDS: PANTOPRAZOLE 40 MG VIAL IV ONE (05:26)
[2025-03-31 06:26] LABS: PLATELET COUNT (AUTO) 210 K/uL (150-450); RED BLOOD CELL COUNT(AUTO) 4.61 MIL/uL (4.0-5.2); RED CELL DISTRIBUTION WIDTH 18.3 % (11.5-15.0); WHITE BLOOD COUNT (AUTO) 6.6 K/uL (4.3-11.0)
[2025-03-31 06:33] LABS: CALCIUM, SERUM 9.1 mg/dL (8.5-10.1); CREATININE 0.7 mg/dL (0.6-1.3); SODIUM SERUM 142 mmol/L (136-145); UREA NITROGEN, BLOOD 11 mg/dL (7-18)
[2025-03-31 06:40] LABS: ASPARTATE AMINOTRANSFERASE 44 U/L (15-37); TOTAL PROTEIN, SERUM 5.5 g/dL (6.4-8.2)
[2025-03-31 06:42] LABS: LACTIC ACID 1.7 mmol/L (0.4-2.0)
[2025-03-31] MEDS ORDERED: IOHEXOL-300 100 ML VIAL IV ONE ×2 (07:36→08:26)
[2025-03-31] MEDS ORDERED: IV NS 0.9% 250 ML IV ONE ×2 (07:37→08:26)
[2025-03-31] MEDS ORDERED: MAGNESIUM HYDROXIDE 30 ML UDC PO PRN (08:00)
[2025-03-31] MEDS ORDERED: ONDANSETRON HCL/PF 4 MG/2 ML VIAL IVP PRN (08:00)
[2025-03-31] MEDS ORDERED: MAG HYDROX/AL HYDROX/SIMETH 30 ML UDC PO PRN (08:00)
[2025-03-31] MEDS ORDERED: Z GUARD REMEDY 4 OZ OINT TP PRN (08:00)
[2025-03-31] MEDS ORDERED: ALBUTEROL FS 2.5 MG/3 ML VIAL.NEB NEB PRN (08:00)
[2025-03-31] MEDS ORDERED: IPRATROPIUM NEB FS 0.5 MG/2.5 ML AMPUL.NEB NEB PRN (08:00)
[2025-03-31] MEDS ORDERED: BUDE0.253 IH (08:46)
[2025-03-31] MEDS ORDERED: CLOT15CR5 TP (08:46)
[2025-03-31] MEDS ORDERED: IPRA3AMP23 IH (08:46)
[2025-03-31] MEDS ORDERED: METO50TA16 PO (08:46)
[2025-03-31] MEDS ORDERED: MAGN400O6 PO (08:46)
[2025-03-31] MEDS ORDERED: MAG30ORA PO (08:46)
[2025-03-31] MEDS: FUROSEMIDE 40 MG/4 ML VIAL IV SCH ×2 (09:00→12:17)
[2025-03-31] MEDS: SPIRONOLACTONE 25 MG TABLET PO SCH (12:18)
[2025-03-31] MEDS: ASCORBIC ACID 500 MG TABLET PO SCH (12:18)
[2025-03-31] MEDS: ZINC SULFATE 220 MG CAPSULE PO SCH (12:19)
[2025-03-31] MEDS: ALLOPURINOL 100 MG TABLET PO SCH (12:20)
[2025-03-31] MEDS: GABAPENTIN 400 MG CAPSULE PO SCH (12:21)
[2025-03-31] MEDS: THERAHONEY GEL 1.5 OZ TUBE TP SCH (12:21)
[2025-03-31] MEDS: PROSOURCE / PROSTAT (PYXIS) 30 ML UDC PO SCH (12:22)
[2025-03-31] MEDS: MULTIVITAMINS,THERAGRAN 1 UDTAB TABLET PO SCH (12:23)
[2025-03-31] MEDS: SENNOSIDES 8.6 MG TABLET PO SCH (12:23)
[2025-03-31] MEDS: ACETAMINOPHEN 325 MG TABLET PO PRN (12:24)
[2025-03-31] MEDS: POLYETHYLENE GLYCOL 3350 17 GM POWD.PACK PO SCH (12:26)
[2025-03-31] MEDS: APIXABAN 5 MG TABLET PO SCH (12:28)
[2025-03-31] MEDS: POTASSIUM CHLORIDE 10 MEQ TABLET.SA PO SCH (12:32)
[2025-03-31] MEDS: MOMETASONE/FORMOTEROL 8.8 GM HFA.AER.AD IH SCH (17:35)
[2025-03-31 20:00] VITALS: BP 110/86; TEMP 98.2; O2SAT 96
[2025-03-31] MEDS: ATORVASTATIN 40 MG TABLET PO SCH (21:10)
[2025-04-01] VITALS (7 sets, daily range): BP systolic 93–124; BP diastolic 54–98; TEMP 97.5–98.2; O2SAT 94–100
[2025-04-01 06:56] LABS: PLATELET COUNT (AUTO) 200 K/uL (150-450); RED BLOOD CELL COUNT(AUTO) 4.81 MIL/uL (4.0-5.2); RED CELL DISTRIBUTION WIDTH 19.0 % (11.5-15.0); WHITE BLOOD COUNT (AUTO) 6.8 K/uL (4.3-11.0)
[2025-04-01 07:05] LABS: APPEARANCE,URINE CLEAR (CLEAR); BLOOD, URINE TRACE-INTA Ery/uL (NEGATIVE); LEUKOCYTE ESTERASE ,URINE 3+ (NEGATIVE); NITRITE, URINE POSITIVE (NEGATIVE); UGLUCOSE NEGATIVE (NEGATIVE)
[2025-04-01 07:36] LABS: ADD URINE CULTURE YES; SQUAMOUS EPITHELIAL CELL,UR Many /HPF (None Seen)
[2025-04-01 07:47] LABS: ASPARTATE AMINOTRANSFERASE 38.0 U/L (15-37); CALCIUM, SERUM 9.2 mg/dL (8.5-10.1); CREATININE 0.8 mg/dL (0.6-1.3); PHOSPHORUS 3.3 mg/dL (2.5-4.9); SODIUM SERUM 141.0 mmol/L (136-145); TOTAL PROTEIN, SERUM 5.7 g/dL (6.4-8.2); UREA NITROGEN, BLOOD 15.0 mg/dL (7-18)
[2025-04-01] MEDS: SUCRALFATE 1 G TABLET PO SCH (08:09)
[2025-04-01] MEDS: PANTOPRAZOLE 40 MG TABLET.DR PO SCH (08:10)
[2025-04-01] MEDS: THERAHONEY GEL 1.5 OZ TUBE TP SCH (08:18)
[2025-04-01 08:39] LABS: LDL 112.0 mg/dL (0-99)
[2025-04-01] MEDS: DIGOXIN INJ 0.5 MG/2 ML AMPUL IV SCH (11:22)
[2025-04-01] MEDS: CEFTRIAXONE 1 G in IV D5W 50 ML IV SCH (12:21)
[2025-04-02] VITALS: BP 104/57; TEMP 97.9; O2SAT 97
[2025-04-02 04:00] VITALS: BP 113/73; TEMP 97.9; O2SAT 98
[2025-04-02 07:30] VITALS: BP 112/91; TEMP 98.2; O2SAT 98
[2025-04-02] MEDS: BUMETANIDE INJ 8 MG in IV NS 0.9% 48 ML IV ONE (10:48)
[2025-04-02] MEDS: POTASSIUM CHLORIDE 20 MEQ TAB.PRT.SR PO SCH (10:49)
[2025-04-02] MEDS: DIGOXIN 0.125 MG TABLET PO SCH (13:02)
[2025-04-02 20:00] VITALS: BP 118/50; TEMP 98.2; O2SAT 96
[2025-04-03] VITALS: BP 108/60; TEMP 98.2; O2SAT 98
[2025-04-03 07:15] LABS: ASPARTATE AMINOTRANSFERASE 56.0 U/L (15-37); PHOSPHORUS 3.2 mg/dL (2.5-4.9); SODIUM SERUM 136.0 mmol/L (136-145); TOTAL PROTEIN, SERUM 6.1 g/dL (6.4-8.2); UREA NITROGEN, BLOOD 0.0 mg/dL (7-18)
[2025-04-03 07:22] LABS: CALCIUM, SERUM 9.4 mg/dL (8.5-10.1)
[2025-04-03 07:23] LABS: PLATELET COUNT (AUTO) 193 K/uL (150-450); RED BLOOD CELL COUNT(AUTO) 5.23 MIL/uL (4.0-5.2); RED CELL DISTRIBUTION WIDTH 19.4 % (11.5-15.0); WHITE BLOOD COUNT (AUTO) 7.3 K/uL (4.3-11.0)
[2025-04-03 07:27] LABS: CREATININE 0.7 mg/dL (0.6-1.3)
[2025-04-03 09:00] VITALS: BP 106/69; TEMP 97.9; O2SAT 99
[2025-04-03 12:24] VITALS: BP 115/72; TEMP 97.9; O2SAT 100
[2025-04-03 13:13] VITALS: TEMP 98.1
== END 2025-04-03 16:30 | DRG 280 ==
LOC: ER 04:13 → TELE 08:41
PROVIDERS: ADMIT Nurse Practitioner Acute Care; ATTEND Nurse Practitioner Acute Care
DX: I11.0 Hypertensive heart disease with heart failure (principal); G93.41 Metabolic encephalopathy; I21.A1 Myocardial infarction type 2; L89.154 Pressure ulcer of sacral region, stage 4; L89.323 Pressure ulcer of left buttock, stage 3; L89.313 Pressure ulcer of right buttock, stage 3; I50.23 Acute on chronic systolic (congestive) heart failure; D68.59 Other primary thrombophilia; I48.20 Chronic atrial fibrillation, unspecified; J90 Pleural effusion, not elsewhere classified; N39.0 Urinary tract infection, site not specified; F01.53 Vascular dementia, unspecified severity, with mood disturbance; F01.54 Vascular dementia, unspecified severity, with anxiety; E78.5 Hyperlipidemia, unspecified; F32.A Depression, unspecified; G62.9 Polyneuropathy, unspecified; I25.2 Old myocardial infarction; Z86.711 Personal history of pulmonary embolism; Z86.73 Personal history of transient ischemic attack (TIA), and cerebral infarction without residual deficits; Z95.0 Presence of cardiac pacemaker; Z74.01 Bed confinement status; J44.9 Chronic obstructive pulmonary disease, unspecified; Z79.01 Long term (current) use of anticoagulants; F41.9 Anxiety disorder, unspecified; Z74.09 Other reduced mobility; Z87.440 Personal history of urinary (tract) infections; I71.40 Abdominal aortic aneurysm, without rupture, unspecified; K52.89 Other specified noninfective gastroenteritis and colitis; E27.8 Other specified disorders of adrenal gland; B96.5 Pseudomonas (aeruginosa) (mallei) (pseudomallei) as the cause of diseases classified elsewhere; L98.8 Other specified disorders of the skin and subcutaneous tissue; R07.9 Chest pain, unspecified
CPT/HCPCS: 36415; 71045-TC; 76705-TC; 80048-TC; 80053-TC; 80061-TC; 80076-TC; 81001; 83605-TC; 83690-TC; 83735-TC; 84100-TC; 84484-TC; 85025-TC; 87081-TC; 87086-TC; 87186-TC; A4223; G0378; J0696; J1160; J1885; J1938; J2470; J3490; J7050; J7060; Q9967